=== PATIENT | female | born 1940 | race Caucasian/White ===

== ENCOUNTER 2019-06-05 23:42 | Inpatient (IN) | payer OTHER ==
[~2019-06-05] VITALS: Ht 160 cm; Wt 101.3 kg
[2019-06-06 00:02] VITALS: Ht 160 cm; Wt 101.3 kg
--- NOTE | 2019-06-06 00:14 | NUR ---
PT BRB [facility] WITH C/O RIGHT ANKLE PAIN S/P FALL OFF BED THIS EVENING. PT AAOX4 WITH NOTICIBLE SWELLING TO RIGHT ANKLE. +PMSC NOTED. BREATHING EVEN AND UNLABORED. SKIN WARM, DRY AND INTACT- SLIGHT ABRASION NOTED TO RIGHT ANKLE. PT PLACED ON ALL MONITORS FOR FURTHER OBSERVATION.
[2019-06-06 01:39] LABS: PLATELET COUNT 146 x10^3mcL (130-400)
--- NOTE | 2019-06-06 01:42 | NUR ---
DR ABDALLA AT BEDSIDE FOR SPLINT PLACEMENT WITH PARVIZ FERREIRA. DAUGHTER AT BEDSIDE AT THIS TIME WELL.
[2019-06-06 01:47] LABS: BASOPHIL % 0 % (0-2); CALCIUM 9.3 mg/dL (8.5-10.1); CARBON DIOXIDE 24.5 mmol/L (21-32); CHLORIDE SERUM 109 mmol/L (98-107); CREATININE SERUM 1.5 mg/dL (0.6-1.0); GLUCOSE SERUM 116 mg/dL (74-106); POTASSIUM SERUM 3.9 mmol/L (3.5-5.1); RED CELL DISTRIBUTION WIDTH 14.6 % (11.5-14.5); SODIUM SERUM 143 mmol/L (136-145)
[2019-06-06 01:59] LABS: ALKALINE PHOSPHATASE 121 U/L (46-116); ALT/SGPT 16 U/L (14-59); AST/SGOT 13 U/L (15-37); BILIRUBIN TOTAL 0.26 mg/dL (0.20-1.00); TOTAL PROTEIN, SERUM 6.7 g/dL (6.4-8.2)
[2019-06-06 02:02] LABS: ALBUMIN 2.9 g/dL (3.4-5.0)
[2019-06-06] MEDS ORDERED: DONEPEZIL PO (03:03)
[2019-06-06] MEDS ORDERED: DILANTIN PO (03:03)
[2019-06-06] MEDS ORDERED: LEVOTHYROXINE PO (03:04)
[2019-06-06] MEDS ORDERED: SIMVASTATIN PO (03:04)
[2019-06-06] MEDS ORDERED: METOPROLOL PO (03:04)
[2019-06-06] MEDS ORDERED: OXYBUTYNIN PO (03:04)
--- NOTE | 2019-06-06 03:18 | NUR ---
PATIENT LYING ON GURNEY- XRAY IN ROOM - PT BREATHING EVEN AND UNLABORED. NO SS OF DISTRESS NOTED.
[2019-06-06 04:14] VITALS: BP 148/67
--- NOTE | 2019-06-06 04:30 | NUR ---
PT IS CALM AND COOPERATIVE WITH NURSING CARE. PT IS AWAKE AND ORIENTED X2-3 WITH PERIODS OF FORGETFULNESS AND CONFUSION BUT IS ABLE TO BE REORIENTED. PT HAS HX OF DEMENTIA. PT DENIES CP OR PRESSURE. PT HAS PALPABLE PULSES, BUT UNABLE TO ASSESS PULSES TO RLE, SOFT CAST NOTED. CIRCULATION TO RLE WNL AND ABLE TO MOVE TOES. PT DENIES SOB. RESPIRATIONS EVEN AND UNLABORED ON ROOM AIR. PT DENIES ABD PAIN. PT REPORTS LAST BM 06/05/19. PT DENIES N/V. PT IS INCONTINENT AT TIMES. PT UTILIZES WALKER/CANE WHILE AT TIME. PT ABLE TO REPOSITION SELF IN BED. PT FAMILY AT BEDSIDE. PT HAS IV TO RH. PATENT WITH NO SIGNS OF INFILTRATION. PT SKIN CDI. SOFT CAST NOTED TO RLE. NO SIGNS OF DISTRESS. WILL CONTINUE TO MONITOR.
--- NOTE | 2019-06-06 07:09 | NUR ---
PT REMAINS IN BED AT THIS TIME RESTING. PT REMAINS APPROPRIATE AND IS CALM AND COOPERATIVE WITH NURSING CARE. PT FAMILY REMAINS AT BEDSIDE. PT DENIES PAIN OR DISCOMFORT AT THIS TIME. PT RLE ELEVATED AT THIS TIME. SOFT CAST NOTED. CIRCULATION WNL. CAP REFILL WNL. ALL PT NEEDS MET. NO SIGNS OF DISTRESS. WILL ENDORSE TO DAY NURSE.
--- NOTE | 2019-06-06 07:55 | NUR ---
AAO TO PERSON AND PLACE, FORGETFUL, HISTORY OF DEMENTIA. PLEASANT, DTR PRESENT, SUPPORTIVE. LUNGS CTA. NO SOB. O2 SAT ON RA 97%. BS'S ACTIVE TIMES 4. FALL PRECAUTIONS. BRACE WITH SMITA WRAP TO RLE. DENIES PAIN. INCONTINENT OF URINE. 1+ EDEMA BLE.
[2019-06-06 10:02] VITALS: BP 119/67
[2019-06-06 10:19] VITALS: BP 165/87
[2019-06-06 17:37] VITALS: BP 118/94
--- NOTE | 2019-06-06 18:45 | NUR ---
AAO TO SELF AND SOMEWHAT TO PLACE. DAUGHTER AT BEDSIDE, SHE SIGNED FOR THE CLOSED REDUCTION PROCEDURE, DONE AT THE BEDSIDE. I GAVE ATIVAN 1 MG IVP PER MD ORDER PRIOR TO THE PROCEDURE, AND THEY USED MARCAINE NERVE BLOCK FOR ANESTHESIA. NO C/O PAIN. IV SITE RIGHT HAND PATENT, CDI. COOPERATIVE. THE DISCHARGE TO [facility] WAS STOPPED, AND THE PROCEDURE WAS DONE AT BEDSIDE INSTEAD, SO SHE WILL BE STAYING OVERNIGHT. VS'S STABLE.
--- NOTE | 2019-06-06 19:54 | NUR ---
PT. DROWSY, SLEEPING MOSTLY. S/P CLOSED REDUCTION PROCEDURE AT BEDSIDE DURING SHIFT CHANGE. PT. RESPONDING TO TACTILE AND PAIN STIMULI, ABLE TO FOLLOW SOME SIMPLE COMMANDS. BREATH SOUNDS CLEAR THROUGHOUT LUNG COATES, RESP. EVEN, UNLABORED. NO SOB NOTED. PT. ON RA. ABD. SOFT AND ROUND, BOWEL SOUNDS ACTIVE. RLE W/ DRSG. SOME EDEMA NOTED TO RLE ANKLE REGION. UNABLE TO PALPATE PEDAL PULSE DUE TO DRSG. LLE PEDAL PULSE MODERATE. IV HEPLOCKED, SITE INTACT. DAUGHTER AT BEDSIDE.
--- NOTE | 2019-06-06 20:38 | NUR ---
DR. ARROYO AT PT.'S BEDSIDE. DISCUSSED CONCERNS THAT THE REALLIGNEMENT WITH CLOSED REDUCTION PROCEDURE HAS BEEN UNSUCCESSFUL FOR SEVERAL ATTEMPTS. THE NEED FOR SURGERY DISCUSSED WITH PT.S' DAUGHTER, MILENA. CONSENTS TO BE OBTAINED TOMORROW PER DR. ARROYO.
[2019-06-06 21:43] VITALS: BP 153/91
--- NOTE | 2019-06-07 02:28 | NUR ---
PT. AWAKE AND REMOVING CLOTHING, CONFUSED. ATTEMPTING TO REMOVE SPLINT DRSG FROM RLE. PT. REORIENTED. PT. GIVEN BEDBATH, MADE COMFORTABLE. IV SITE SECURED. BED LOW LAYING WITH ALARM ON. WILL CONTINUE TO MONITOR.
[2019-06-07 06:30] VITALS: BP 144/50
--- NOTE | 2019-06-07 06:52 | NUR ---
RECEIVED CALL FROM [facility], STATED THAT THE PATIENT REFUSED BLOOD DRAW, STATED THAT PATIENT WANTED HER BLOOD DRAWN AFTER BREAKFAST. [facility] CALLED AFTER LEAVING UNIT WITHOUT INFORMING ME. THEY CALLED WHEN THEY HAD ALREADY GONE BACK TO THEIR UNIT. SPOKE WITH RONALD FROM THE LAB, WHO WAS MADE AWARE THAT MY PATIENT HAS SURGERY TODAY AND THE LABS NEED TO BE DONE. SHE STATED THAT THEY WOULD RETURN TO DO THE LABS. CHARGE NURSE MADE.
[2019-06-07 07:53] LABS: CALCIUM 8.9 mg/dL (8.5-10.1); CARBON DIOXIDE 24.9 mmol/L (21-32); CHLORIDE SERUM 110 mmol/L (98-107); CREATININE SERUM 1.4 mg/dL (0.6-1.0); GLUCOSE SERUM 87 mg/dL (74-106); POTASSIUM SERUM 4.1 mmol/L (3.5-5.1); SODIUM SERUM 145 mmol/L (136-145)
--- NOTE | 2019-06-07 07:55 | NUR ---
AWAKE,ALERT BUT FORGETFUL AND CONFUSED AT TIMES ,ABLE TO FOLLOW COMMAND.LEFT ANKLE FX W/ SPLINT W/ DRESSING CDI S/P FALL FROM HOME . REQUIRES MOD ASSIST. W/ ADL NEEDS. INCONT. OF URINE KEEP CLEAN AND DRY. NPO MN FOR SX TODAY.WILL CONT. PLAN OF CARE.
[2019-06-07 07:56] LABS: PLATELET COUNT 172 x10^3mcL (130-400)
[2019-06-07 08:07] LABS: BASOPHIL % 0 % (0-2); RED CELL DISTRIBUTION WIDTH 14.8 % (11.5-14.5)
[2019-06-07 09:29] VITALS: BP 195/59
--- NOTE | 2019-06-07 10:49 | NUR ---
PT. PULLED OUT HER IV ACCESS IN RT. HAND .RE- INSERTED NEW IV ACCESS IN RT. AC.
--- NOTE | 2019-06-07 11:00 | NUR ---
PT. IS INCONT.PARKER CATH. INSERTED ORDERED.PROCEDURE ASHOK WELL.
--- NOTE | 2019-06-07 11:45 | NUR ---
PT, WENT DOWN TO OR VIA BED.
--- NOTE | 2019-06-07 18:12 | NUR ---
PT. BACK FROM OR VIA BED.APPEARS DROWSY BUT EASILY ARROUSABLE, S/P RT. ANKLE ORIF,W/ SHORT CAST AND DRESSING INPLACE.ABLE TO WIGLES ALL TOES AND ELVATED W/ 2 PILLOWS. NO BLEEDING NOTED . V/S TAKEN AND RECORDED B/P128/ T- 97 HR-55 RR- 16 DENIES ANY PAIN AT THIS TIME.MADE COMFORTABLE IN BED.CALL LIGHT W/ IN REACH.WILL CONT. PLAN OF CARE.
--- NOTE | 2019-06-07 19:15 | NUR ---
RECEIVED PT FROM PREVIOUS SHIFT. S/P ORIF R ANKLE 06/07/19, RLE WRAPPED IN SHORT CAST AND ELEVATED ON PILLOW. SCD ON LLE. PT DROWSY BUT AROUSABLE. BREATHING E/U ON 2L OXYGEN NC. NO SIGNS OF PAIN OBSERVED. NO S/S ACUTE DISTRESS. DAUGHTER AT BEDSIDE. IV TO RAC CDI, SALINE-LOCKED. CALL LIGHT WITHIN REACH. SAFETY MEASURES IN PLACE. WILL CONTINUE TO MONITOR.
[2019-06-07 20:12] VITALS: BP 138/69
--- NOTE | 2019-06-08 02:33 | NUR ---
PT RESTING IN BED. BREATHING E/U. NO S/S ACUTE DISTRESS. NO SIGNS OF PAIN APPARENT. CHEST RISE/FALL EQUAL. CALL LIGHT WITHIN REACH. SAFETY MEASURES IN PLACE. RLE ELEVATED ON PILLOW. WILL CONTINUE TO MONITOR.
--- NOTE | 2019-06-08 03:01 | NUR ---
PLACED PT BACK ON NC. PT EASILY AROUSABLE TO TACTILE STIMULI. DENIES PAIN. NO SIGNS OF PAIN OBSERVED. WILL CONTINUE TO MONITOR.
[2019-06-08 04:37] VITALS: BP 154/55
--- NOTE | 2019-06-08 06:06 | NUR ---
PT CRYING AND GROANING IN PAIN, UNABLE TO RATE ON SCALE. OFFERED PT NORCO PO, HOWEVER PT UNABLE TO FOLLOW COMMANDS, KEEPS SAYING "OH PLEASE". MEDICATION WASTED WITH SECOND RN. ADMINISTERED MORPHINE IVP, WILL MONITOR EFFECTIVENESS.
--- NOTE | 2019-06-08 07:18 | NUR ---
BEDSIDE REPORT GIVEN TO AMADOU HERRERA.
--- NOTE | 2019-06-08 07:45 | NUR ---
RECIEVED PT. AWAKE,ALERT MOANING AND CRYING STILL COMPLAINING OF PAIN IN RT. ANKLE S/P ORIF , MEDICATED FOR PAIN ORDERED AND MADE COMFORTABLE IN BED. RT ANKLE KEEP ELEVATED W/ PILLOWS AT ALL TIME.CALL LIGHT W/ IN REACH.PARKER CATH. PATENT DRAINING JANNET COLOR URINE.WILL CONT. TO MONITOR PT.
--- NOTE | 2019-06-08 07:50 | NUR ---
RE-ASSESS PT. AND PT. STILL MOANING COMPLAINING OF PAIN IN RT. ANKLE S/P ORIF,STATED THE PAIN MEDS MORPHINE WAS GIVEN TO HER HAS NO EFFECT.MEDICATED NORCO PO ORDERED FOR PAIN. MADE PT COMFORTABLE IN BED.CALL LIGHT W/ IN REACH.
[2019-06-08 08:03] LABS: CALCIUM 8.8 mg/dL (8.5-10.1); CARBON DIOXIDE 18.8 mmol/L (21-32); CHLORIDE SERUM 109 mmol/L (98-107); CREATININE SERUM 1.6 mg/dL (0.6-1.0); GLUCOSE SERUM 112 mg/dL (74-106); POTASSIUM SERUM 4.8 mmol/L (3.5-5.1); SODIUM SERUM 142 mmol/L (136-145)
[2019-06-08 08:07] VITALS: BP 145/80
[2019-06-08 08:54] LABS: PLATELET COUNT 190 x10^3mcL (130-400)
[2019-06-08 08:58] LABS: BASOPHIL % 0 % (0-2); RED CELL DISTRIBUTION WIDTH 14.8 % (11.5-14.5)
--- NOTE | 2019-06-08 10:00 | NUR ---
PT. SLEEPING COMFORTABLY IN BED. PAIN MEDS GIVEN WAS EFFECTIVE,DENIES ANY PAIN AT THIS TIME. CALL LIGHT W/ IN REACH.
--- NOTE | 2019-06-08 15:54 | NUR ---
PT. RESTING COMFORTABLY IN BED. TURN TO HER LEFT SIDE MADE COMFORTABLE .CALL LIGHT W/ in reach.DENIES ANY PAIN AT THIS TIME PT. STILL CONFUSED AND FORGETFUL.
[2019-06-08 17:10] VITALS: BP 124/48
[2019-06-08] MEDS ORDERED: NAMENDA10 M2 PO (17:22)
[2019-06-08] MEDS ORDERED: NOR5 PO (17:23)
[2019-06-08] MEDS ORDERED: HCTZ/TRIAMTEREN1 CA1 PO (17:24)
--- NOTE | 2019-06-08 17:30 | NUR ---
OFFERED NORCO FOR PAIN GIVEN ORDERED.CALL LIGHT W/ IN REACH.
--- NOTE | 2019-06-08 19:24 | NUR ---
RECEIVED PT FROM PREVIOUS SHIFT. AAO TO SELF AND PLACE. HX DEMENTIA. NEEDS REORIENTATION, PT VERY FORGETFUL. KEEPS ASKING DAUGHTER AT BEDSIDE WHEN SHE WILL GO HOME, TOLD PT NEED FOR PT AND POC, PT AND DAUGHTER VERBLIZED UNDERSTANDING. RLE WRAPPED IN SHORT CAST AND ELEVATED ON PILLOW. SCD ON LLE. BREATHING E/U ON 2L OXYGEN NC. NO SIGNS OF PAIN OBSERVED. NO S/S ACUTE DISTRESS. IV TO RAC CDI, IVF INFUSING WELL. CALL LIGHT WITHIN REACH. SAFETY MEASURES IN PLACE. WILL CONTINUE TO MONITOR.
[2019-06-08 20:25] VITALS: BP 144/44
--- NOTE | 2019-06-08 20:58 | NUR ---
PT VERY UPSET AND CRYING, WISHES TO SPEAK TO DAUGHTER MILENA. PT SPOKE ON PHONE WITH MILENA, PT VERY FORGETFUL AND NEEDED REPETITIVE REORIENTATION. MEDICATED PER EMAR FOR RLE PAIN, PT GUARDING NOTED. CALL LIGHT WITHIN REACH. SAFETY MEASURES IN PLACE. WILL CONTINUE TO MONITOR.
--- NOTE | 2019-06-08 23:12 | NUR ---
PT FOUND WITH IV TO RAC PULLED OUT, CATHETER INTACT, GOWN AND LINENS SOAKED. NEW IV #24 GAUGE INSERTED INTO L HAND, FLUSHES WELL. WRAPPED FOR PROTECTION. PT TOLERATED WELL. MEDICATED PER EMAR. WILL CONTINUE TO MONITOR.
--- NOTE | 2019-06-09 00:37 | NUR ---
PT RESTING IN BED, BREATHING E/U, NO S/S ACUTE DISTRESS, NO SIGNS OF PAIN NOTED. CALL LIGHT WITHIN REACH. SAFETY MEASURES IN PLACE. WILL CONTINUE TO MONITOR.
[2019-06-09 05:40] VITALS: BP 146/65
--- NOTE | 2019-06-09 05:51 | NUR ---
PT PULLED OUT IV TO L HAND. PT IS NOT AWARE WHEN SHE PULLS THEM OUT DUE TO DEMENTIA. WILL ATTEMPT TO REINSERT.
--- NOTE | 2019-06-09 06:49 | NUR ---
NEW #22 GAUGE IV INSERTED INTO RFA, CDI, PATENT WITH GOOD BLOOD RETURN.
[2019-06-09 07:05] LABS: PLATELET COUNT 142 x10^3mcL (130-400)
--- NOTE | 2019-06-09 07:36 | NUR ---
PATIENT SLEEPING BUT ARROUSABLE, A/OX2, ABLE TO MAKE NEEDS KNOWN AND FOLLOW COMMANDS. DENIES HEADACHE OR CHEST PAIN. LUNGS SOMWEHAT DIMINISHED TO BASES BUT OTHERWISE CTA, NO RESP DISTRESS NOTED ON RA, BREATHING E/U. BOWEL SOUNDS ACTIVE, DENIES N/V. PARKER IN PLACE DRAINING YELLOW URINE TO GRAVITY. SHORT CAST NOTED TO RLE (S/P ORIF), DRESSING CDI, RLE ELEVATED ON PILLOW. ABLE TO FEEL SENSATION AND MOVE RIGHT TOES. DENIES PAIN AT THIS TIME. IV SITE TO RFA WNL, NO REDNESS/SWELLING. CALL LIGHT WITHIN REACH. WILL CONT TO MONITOR.
[2019-06-09 07:43] LABS: CALCIUM 8.1 mg/dL (8.5-10.1); CHLORIDE SERUM 111 mmol/L (98-107); CREATININE SERUM 1.5 mg/dL (0.6-1.0); GLUCOSE SERUM 102 mg/dL (74-106); POTASSIUM SERUM 3.9 mmol/L (3.5-5.1); SODIUM SERUM 144 mmol/L (136-145)
[2019-06-09 07:56] LABS: BASOPHIL % 0 % (0-2); RED CELL DISTRIBUTION WIDTH 15.2 % (11.5-14.5)
[2019-06-09 09:04] VITALS: BP 148/73
--- NOTE | 2019-06-09 12:21 | NUR ---
SPOKE WITH DR MANTILLA, RECEIVED TELEPHONE READBACK ORDER AND PLACED FOR SS TRANSFER TO SNF PT. ALSO, PER DR MANTILLA OKAY TO LEAVE PARKER IN PLACE AT THIS TIME.
--- NOTE | 2019-06-09 12:42 | NUR ---
PHYSICAL THERAPIST AT BEDSIDE EVALUATING PATIENT. FAMILY AT BEDSIDE. WILL CONT TO MONITOR.
[2019-06-09 18:06] VITALS: BP 146/62
--- NOTE | 2019-06-09 19:25 | NUR ---
RECIEVED PT IN BED WITH FAMILY AT BEDSIDE, PT IS A/OX [address], AND HAS SOME EPISODES OF CONFUSION, PERFORMED ASSESSMENT AT THIS TIME, PT DENIES PAIN OR SOB AT THIS TIME, TRACE EDEMA TO THE RLE, PT FEELS SENSATION IN TOES OR RLE, RLE ELEVATED, SAFETY PRECAUTIONS IN PLACE, WILL CONTIUE TO MONITOR
[2019-06-09 20:42] VITALS: BP 169/56
--- NOTE | 2019-06-09 21:15 | NUR ---
PT BP 169/[address] MANTILLA, NO ANSWER WILL CALL AGAIN
[2019-06-09 21:25] VITALS: BP 162/66
--- NOTE | 2019-06-09 21:30 | NUR ---
PT BP 162/66, CONTACTED DR MANTILLA INFORMED HIM OF BP OF 169/56 AND THEN BP OF 162/66, NO NEW ORDERS AT THIS TIME
--- NOTE | 2019-06-09 23:00 | NUR ---
PT RESTING IN BED COMFORTABLY WITH NO ACUTE DISTRESS NOTED AT THIS TIME, SAFETY PRECAUTIONS IN PLACE, WILL CONTIUE TO MONITOR
--- NOTE | 2019-06-10 01:20 | NUR ---
PT RESTING IN BED, NO ACUTE DISTRESS AT THIS TIME, PT DENIES PAIN AT THIS TIME SAFETY PRECAUTIONS IN PLACE, WILL CONTINUE TO MONITOR
--- NOTE | 2019-06-10 03:46 | NUR ---
PT PULLED OUT IV, STARTED NEW IV IN THE LEFT HAND 22 G WRAPPED IN COFLEX AND REORIENTED PT AND EDUCATED REASONS NOT TO TOUCH IV AND WHY SHE NEEDS IT.
--- NOTE | 2019-06-10 05:12 | NUR ---
PT SLEPT ON AND OFF THROUGH THE NIGHT WITH EPISODES OF CONFUSION, REORIENTED PT NEEDED, PT HAD ELEVATED BLOOD PRESSURE AND DR SERNA WAS CALLED AND GAVE NO NEW ORDERS, PT WAS ASYMPTOMATIC THROUGH THE NIGHT, SAFETY PRECAUTIONS WERE MAINTAINED THROUGH THE NIGHT AND RLE WAS ELEVATED THROUGH THE NIGHT, SAFETY PRECAUTIONS WERE MAINTAINED, WILL CONTINUE TO MONITOR AND ENDORSE CARE TO ONCOMING RN
[2019-06-10 05:43] VITALS: BP 156/67
--- NOTE | 2019-06-10 08:13 | NUR ---
AT 0740 - RECEIVED PATIENT FROM NIGHT NURSE. AWAKE, ALERT AND CONFUSED. ORIENTED TO PERSON AND PLACE ONLY. ASKING FOR HER MOTHER. ATTEMPTED TO RE-ORIENT PATIENT TO SITUATION. IV IN LFA INFUSING D5 1/2 NS AT 75 ML/HR. PATIENT TAKING PO FLUIDS BUT REFUSED BREAKFAST. SAYS THAT SHE IS NOT HUNGRY. RLE IN CAST AND ELEVATED ON PILLOW. DENIES ANY PAIN. BED EXIT ALARM ACTIVE.
[2019-06-10 09:36] VITALS: BP 164/55
--- NOTE | 2019-06-10 10:46 | NUR ---
CALLED THE AFTER HOURS OF [facility] TEL.[phone] AND SPOKE W/ MIRELA AND ASKED TO CALL THE LABORATORY CUREMAN CM AND SHE STATED THAT RODOLFO ZARCO THE CM WILL CV. GIVE THE PHONE NO. OF [facility] TO MIRELA.
--- NOTE | 2019-06-10 11:00 | NUR ---
RODOLFO ZARCO FROM [facility] CALLED BACK AND TALKED TO HER AND TOLD HER THAT LEAVE A NOTES TO GIVE TO HER THE NOTES OF P.T. OF TODAY. RODOLFO ZARCO WANTS TO READ THE NOTES OF P.T.ONLY ERYN DID AND TOLD HER THAT [facility] ACCEPTED HER BUT NEEDS AN AUTHORIZATION FOR TRANSFER AND TRANSPORTATION AND ACCEPTING DOCTOR.SHE STATED SHE'LL CALL BACK IN AN HOUR.
--- NOTE | 2019-06-10 12:03 | NUR ---
RODOLFO ZARCO CALLED BACK AND PATIENT IS GOING TO [facility] AND IS ACCEPTING DOCTOR. ASKED HER THE AUTH.NO.OF [facility] AND SHE STATED THAT SHE SPOKE W/ TRISTAN ADMISSION AT [facility]. SHE STATED THAT PATIENT CAN GO [facility]/ [facility] TRANSPORT AND AUTH.NO.[id number]. CALLED TO [facility] AND SPOKE Sandoval/ [facility]AN AND TOLD THAT SPOKE W/ SPIKE REYNOLDS WILL CALL HER FOR THE AUTH.NO.AND SHE STATED THAT SHE'LL CALL HER-RODOLFO. HERE AND MADE AWARE OF THE TRANSFER. 1209 CALLED TO [facility] AND SPOKE W/ AHMET AND MAKE ARRANGMENT FOR TRANSFER PER ANAND AND WILL BE ZIG [employer] SPRING MACHINE OPERATOR AT 1600. PEYTON TOBAR MADE AWARE OF THE TRANSFER.
[2019-06-10 13:25] VITALS: BP 160/60
--- NOTE | 2019-06-10 14:32 | NUR ---
AT 0920 - PHYSICAL THERAPY AT BEDSIDE. PATIENT SITTING ON SIDE OF BED FOR EXERCISES. PER ORDERS; PATIENT TO REMAINS NWB ON RLE. PATIENT'S DAUGHER IS AT BEDSIDE. UPDATED ON CURRENT PLAN. AT 1000 - PER ORDERS FROM DR MANTILLA, PATIENT TO DISCHARGE TO SNF WITH P[facility]ER CATHETER INSITU. AT 1215 - PATIENT HAS NOT HAD BM SINCE SURGERY. GIVEN MILK OF MAG PER EMAR. AT 1313 - PATIENT ATE ONLY SMALL AMOUNT OF FOOD FOR LUNCH. RECEIVED WORD THAT PATIENT IS TO DISCHARGE TO [facility]. TRANSPORT PICK IS SCHEDULED FOR 1600. COMMENCED ON [employer]. FIRST DOSE ADMINISTERED. AT 1330 - COPIES OF PRINTED DISCHARGE PAPERS GIVEN AND AND EXPLAINED TO DAUGHTER. TRANSFER PACKAGE FOR [facility] PREPARED.
--- NOTE | 2019-06-10 15:21 | NUR ---
REPROT GIVEN TO AMADOU ROCHA AT [facility]. PATIENT PREPARED FOR TRANSPORT.
--- NOTE | 2019-06-10 18:06 | NUR ---
PATIENT HAS EATEN MORE FOOD FOR DINNER. STIL WAITING FOR MEDICAL TRANSPORT.
--- NOTE | 2019-06-10 18:27 | NUR ---
DISCHARGED TO [facility].
== END 2019-06-10 18:29 | DRG 492 ==
LOC: ED 23:42 → MU 06-06 02:22
PROVIDERS: Emergency Medicine; Podiatrist Foot & Ankle Surgery; ADMIT Internal Medicine
PROC: 0SSFXZZ Reposition Right Ankle Joint, External Approach (ICD-10-PCS; 2019-06-06)
PROC: 0QSJ04Z Reposition Right Fibula with Internal Fixation Device, Open Approach (ICD-10-PCS; principal; 2019-06-07 12:30)
DX: S82.851A Displaced trimalleolar fracture of right lower leg, initial encounter for closed fracture (principal); N17.0 Acute kidney failure with tubular necrosis; I10 Essential (primary) hypertension; E03.9 Hypothyroidism, unspecified; M19.90 Unspecified osteoarthritis, unspecified site; W17.89XA Other fall from one level to another, initial encounter; Y93.89 Activity, other specified; Y92.013 Bedroom of single-family (private) house as the place of occurrence of the external cause
CPT/HCPCS: 76001; 97110-GP; 97530-GP; C1713; G0378; J1170; J1650; J1885; J2060; J2270; J2405; J2704; J3010; J3490; J7030; J7120; Q0092